=== PATIENT | male | born 1930 | race Caucasian/White ===

== ENCOUNTER 2018-10-19 10:05 | Outpatient (CLI) | payer MEDICARE, BC | END 2018-10-19 23:59 | disposition home or self-care (01) | LOC: RAD 10:05 | PROVIDERS: ATTEND Internal Medicine Hematology & Oncology | DX: Z45.2 Encounter for adjustment and management of vascular access device (principal); C61 Malignant neoplasm of prostate | CPT/HCPCS: 36573; C1751 ==